=== PATIENT | male | born 1985 | race Two or more races ===

== ENCOUNTER 2018-02-12 04:09 | Emergency (ER) | payer SELFPAY ==
[~2018-02-12] VITALS: Ht 190.5 cm; Wt 104.3 kg
[2018-02-12] MEDS ORDERED: SODIUM CHLORIDE 0.9% 1,000 ML IV ONE (04:30)
[2018-02-12 05:43] VITALS: BP 133/74
== END 2018-02-12 06:23 | disposition home or self-care (01) ==
LOC: ER 04:11
DX: R55 Syncope and collapse (principal); E86.0 Dehydration; F17.210 Nicotine dependence, cigarettes, uncomplicated; F12.10 Cannabis abuse, uncomplicated; F14.10 Cocaine abuse, uncomplicated
CPT/HCPCS: 70450; 71045; 99284; J7030